=== PATIENT | female | born 2000 | race Caucasian/White ===

== ENCOUNTER → 2020-02-16 17:52 | Outpatient (BNVA) | payer MEDICAID, SELFPAY | PROVIDERS: Visit Provider Nurse Practitioner Family | DX: R68.89 Other general symptoms and signs (principal); Z20.828 Contact with and (suspected) exposure to other viral communicable diseases | CPT/HCPCS: 87400; 87635 ==

== ENCOUNTER 2021-06-21 22:16 | Emergency (ER) | payer OTHER, BC, MEDICAID, SELFPAY ==
[2021-06-21 22:25] VITALS: BP 109/59; PULSE 87; RESP 16; TEMP 36.8; O2SAT 98; BMI 20.7
--- NOTE | 2021-06-21 22:38 | ED_ITS ---
HPI - Abdominal Pain General: Chief Complaint: Abdominal Pain Stated Complaint: Lower ABD Pain Time Seen by Provider: 06/21/21 22:37 History of Present Illness: HPI narrative: 20-year-old female comes in today with complaints of lower abdominal pain radiating to the left side. Patient reports symptoms have worsened over the last 4 days. Patient also has reported some diarrhea today and a fever. Patient reports poor appetite but no nausea or vomiting. Patient has a Depo-Medrol for control. Patient is a monogamous relationship and denies any vaginal discharge or abnormal bleeding. Patient reports no abdominal surgeries. MD elicited complaint: abdominal pain Pertinent past history: none Onset (ago): day(s) Pain Consistency: intermittent Location: Periumbilical Severity: moderate Quality: cramping Radiation: LLQ Exacerbating factors: bowel movement, movement and other (Urination) Relieving factors: rest Associated Symptoms: Reports anorexia, change in bowel habits, diarrhea and fever(s) Review of Systems Const: Reports: fever(s), body aches and fatigue GI: Reports: diarrhea and change in bowel habits : Reports: vaginal bleeding (Spotting) PFSH ED PFSH: Social History Smoking and tobacco status: never smoked Alcohol intake: never Physical Exam Const: COMMON NORMALS: patient oriented x3 GENERAL APPEARANCE: cooperative HENMT: COMMON NORMALS: normocephalic, TM's normal bilaterally and Normal external nose present HEAD & SCALP: normal to inspection and normocephalic NOSE: Normal external nose present TYMPANIC MEMBRANE: TM's normal bilaterally MOUTH: Normal oral and palatal mucosa present THROAT: posterior oropharynx normal Eye: GENERAL EYE: appearance normal, both eyes and all related structures Neck/C-Spine: COMMON NORMALS: full ROM Lymph: LYMPHATIC: no lymphadenopathy noted Chest: COMMONS NORMALS: normal inspection of the chest Resp: COMMON NORMALS: normal respiratory effort and clear to auscultation bilaterally EFFORT & INSPECTION: Yes able to speak in complete sentences AUSCULTATION: clear to auscultation bilaterally Cardio: COMMON NORMALS: regular rate and regular rhythm RATE: regular rate RHYTHM: regular rhythm GI: COMMON NORMALS: Soft to palpation INSPECTION: Yes normal to inspection AUSCULTATION: Yes normoactive bowel sounds PALPATION: Yes Soft to palpation and Yes Tenderness to palpation present (GI) Details: LLQ : COMMON NORMALS: Yes no CVA tenderness BLADDER/KIDNEY EXAM: Yes no CVA tenderness Back/Pelvis: COMMON NORMALS: no CVA tenderness and thoracic and lumbar spine normal to inspection Extremity: COMMON NORMALS: normal to inspection Neuro: COMMON NORMALS: patient oriented x3 and moves all extremities Psych: COMMON NORMALS: mental status grossly normal and cooperative Skin: COMMON NORMALS: no rashes or lesions noted GENERAL SKIN EXAM: no rashes or lesions noted Course Vital Signs: Vital signs: Vital Signs Temperature 98.2 F 06/21/21 22:25 Pulse Rate 87 06/21/21 22:25 Respiratory Rate 14 06/21/21 23:01 Blood Pressure 109/59 06/21/21 22:25 Pulse Oximetry 98 06/21/21 22:25 MDM - Abdominal Pain MDM Narrative: Medical decision making narrative: 20-year-old female comes in today with some left lower quadrant abdominal pain. On exam patient's abdomen is soft with normal active bowel sounds. Patient did have some tenderness in the left lower quadrant strong. Vital signs were normal. Differential di agnosis includes but not limited to colitis, urinary tract infection, ovarian cyst. CBC was unremarkable. CMP was unremarkable. hCG was negative. Urinalysis showed no significant abnormalities. Patient was given 1 L of IV fluids and 2 mg of morphine and 4 mg of Zofran for her discomfort. Patient had resolution of pain. CT scan of the abdomen pelvis noted distal colitis without any other signs of other illness except may be some pelvic congestion syndrome. Patient reported that he has no recurrent episodes of this type of pain I suspect mildly an infectious colitis. We will give the patient Cipro 500 twice daily for the next 7 days, and Flagyl 250 mg twice a day for next 7 days. I reviewed this with patient and significant other who reported understanding. Patient will follow-up with primary care in 3 days for recheck. Return to the ER for worsening symptoms. Lab Data: Labs: Lab Results 06/21/21 06/21/21 06/21/21 22:41 22:51 22:51 WBC 5.0 10^3/uL 10^3/ uL (4.5-13.0) RBC 4.53 10^6/uL 10^6 /uL (4.1-5.3) Hgb 14.1 g/dL g/dL (11.5-15.3) Hct 42.2 % % (37.0-47.0) MCV 93.2 fl fl (81-99) MCH 31.1 pg pg (28.0-34.0) MCHC 33.4 g/dL g/dL (30.0-36.0) RDW 11.5 % L % (12.1-15.1) Plt Count 197 10^3/cmm 10^3 /cmm (130-400) MPV 10.2 fL fL (7.4-10.4) Neut % (Auto) 58.3 % % Lymph % (Auto) 28.2 % % [place] % (Auto) 10.7 % % Eos % (Auto) 2.0 % % Baso % (Auto) 0.6 % % Neut # (Auto) 2.94 10^3/uL 10^3 /uL (1.8-8.0) Lymph # (Auto) 1.4 10^3/uL L 10^ 3/uL (1.5-6.5) [place] # (Auto) 0.5 10^3/uL 10^3/ uL (0.2-0.9) Eos # (Auto) 0.1 10^3/uL 10^3/ uL (0.0-0.8) Baso # (Auto) 0.0 10^3/uL 10^3/ uL (0.0-0.1) Nucleated RBC % (a uto) 0 % % Nucleated RBCs # 0.0 /100WBC /100W BC Sodium 140 mmol/L mmol/L (136-145) Potassium 3.4 mmol/L L mmol /L (3.5-5.1) Chloride 105 mmol/L mmol/L (98-107) Carbon Dioxide 24 mmol/L mmol/L (22-29) Anion Gap 14.4 (5-19) BUN 9 mg/dL mg/dL (6-20) Creatinine 0.5 mg/dL mg/dL (0.5-0.9) GFR Calculation 157.3 mL/min H mL /min (90-130) Glucose 90 mg/dL mg/dL (65-115) Calculated Osmolal ity 288 mOsm/kg mOsm/ kg (285-295) Calcium 8.8 mg/dL mg/dL (8.5-10.5) Total Bilirubin 0.2 mg/dL mg/dL (0.15-1.2) AST 15 U/L U/L (0-32) ALT 13 U/L U/L (0-33) Alkaline Phosphata se 66 IU/L IU/L (35-105) Total Protein 7.4 g/dL g/dL (6.6-8.7) Albumin 4.3 g/dL g/dL (3.5-5.2) Globulin 3.1 g/dL g/dL (1.3-4.6) Lipase 58 U/L U/L (13-60) HCG, Qual Urine Color Yellow (Yellow) Urine Appearance Clear (CLEAR) Urine pH 7 (5-7) Ur Specific Gravit y 1.005 (1.005-1.030) Urine Protein Neg (Negative) Urine Glucose (UA) Norm (Normal) Urine Ketones Negative (Negative) Urine Blood Neg (Negative) Urine Nitrate Negative (Negative) Urine Bilirubin Neg (Negative) Urine Urobilinogen Norm mg/dL mg/dL (Negative) Ur Leukocyte Renee ase 1+ H (Negative) Urine RBC 0-4 /hpf H /hpf (0-2) Urine WBC 5-10 /hpf H /hpf (0-5) Ur Squamous Epith Cells 0-4 /hpf H /hpf (0-5) Amorphous Sediment Not Reportable Urine Bacteria Trace /hpf /hpf (NONE) SARS-CoV-2 Ag (Rap id) 06/21/21 06/21/21 22:51 23:08 WBC RBC Hgb Hct MCV MCH MCHC RDW Plt Count MPV Neut % (Auto) Lymph % (Auto) [place] % (Auto) Eos % (Auto) Baso % (Auto) Neut # (Auto) Lymph # (Auto) [place] # (Auto) Eos # (Auto) Baso # (Auto) Nucleated RBC % (a uto) Nucleated RBCs # Sodium Potassium Chloride Carbon Dioxide Anion Gap BUN Creatinine GFR Calculation Glucose Calculated Osmolal ity Calcium Total Bilirubin AST ALT Alkaline Phosphata se Total Protein Albumin Globulin Lipase HCG, Qual Negative (Negative) Urine Color Urine Appearance Urine pH Ur Specific Gravit y Urine Protein Urine Glucose (UA) Urine Ketones Urine Blood Urine Nitrate Urine Bilirubin Urine Urobilinogen Ur Leukocyte Renee ase Urine RBC Urine WBC Ur Squamous Epith Cells Amorphous Sediment Urine Bacteria SARS-CoV-2 Ag (Rap id) Negative (Negative) Discharge Plan Discharge Patient Disposition: Home Clinical Impression: Colitis without complication Condition: Stable Prescriptions: New ciprofloxacin HCl 500 mg tablet 500 mg PO BID Qty: 14 RF: 0 metronidazole 500 mg tablet 250 mg PO BID 7 Days Qty: 7 RF: 0 hydrocodone-acetaminophen 5-325 mg tablet 1 tab PO Q8H PRN (Reason: pain (scale score 7-10)) Qty: 7 RF: 0 ondansetron 4 mg tablet,disintegrating 4 mg PO Q8H PRN (Reason: nausea and vomiting) Qty: 7 RF: 0 No Action medroxyprogesterone [Depo-Provera] 150 mg/mL suspension IM RF: 0 Discharge Orders: Discharge ED (Routine); Ordered 06/22/21 Ordered By: Melecio Myrick Discharge Diet: Usual diet Discharge Activity: Increase activity as tolerated Patient Instructions: Colitis (ED), Opioid Safety Activity Restrictions/Additional Instructions: Home and rest. Drink plenty of fluids. Take antibiotics as directed. Use hydrocodone and ondansetron as needed for pain and nausea. Eat a bland diet avoiding spicy, greasy, and acidic foods. Follow-up with primary care in 3 days for recheck. Return to emergency department for new concerns. Coding Level of Care Code ED Receiver/Laborer for Gennaro Fwraphael Exam Comprehensive
[2021-06-21 23:01] VITALS: RESP 14
[2021-06-21] MEDS: morphine 4 mg/mL SDV 1 mL 2 MG IVP (23:01)
[2021-06-21] MEDS: ondansetron 2 mg/ML SDV 2 mL 4 MG IVP (23:01)
[2021-06-21] MEDS: sodium chloride 0.9% 1,000 ML 999 ML IV (23:02)
[2021-06-21 23:06] LABS: Basophils % 0.6 %; Eosinophils # 0.1 10^3/uL (0.0-0.8); Hematocrit 42.2 % (37.0-47.0); Hemoglobin 14.1 g/dL (11.5-15.3); Lymphocytes # 1.4 10^3/uL (1.5-6.5); Lymphocytes % 28.2 %; Mean Corpuscular HGB Conc 33.4 g/dL (30.0-36.0); Mean Corpuscular Hemoglobin 31.1 pg (28.0-34.0); Mean Corpuscular Volume 93.2 fl (81-99); Mean Platelet Volume 10.2 fL (7.4-10.4); Monocytes # 0.5 10^3/uL (0.2-0.9); Monocytes % 10.7 %; Neutrophils # 2.94 10^3/uL (1.8-8.0); Neutrophils % 58.3 %; Nucleated Red Blood Cells % 0 %; Platelet Count 197 10^3/cmm (130-400); Red Blood Count 4.53 10^6/uL (4.1-5.3); Red Cell Distribution Width 11.5 % (12.1-15.1)
[2021-06-21 23:06] LABS: Add Urine Microscopic? YES; Bacteria Urine TRACE /hpf; Bilirubin Urine Neg (Negative); Blood Urine Neg (Negative); Glucose Urine UA Norm (Normal); Ketones Urine Negative (Negative); Leukocyte Esterase Urine 1+ (Negative); Nitrate Urine Negative (Negative); Protein Urine Neg (Negative); RBC Urine 0-4 /hpf (0-2); Specific Gravity, Urine 1.005 (1.005-1.030); Squamous Epithelial Cell Urine 0-4 /hpf (0-5); Urine Appearance Clear (CLEAR); Urine Color Yellow (Yellow); Urobilinogen Urine Norm (Negative); pH Urine 7 (5-7)
--- NOTE | 2021-06-21 23:06 | CTR_ITS ---
PROCEDURE INFORMATION: Exam: CT Abdomen And Pelvis With Contrast Exam date and time: 06/21/2021 11:06 PM Age: 20 years old Clinical indication: Abdominal pain; Localized; Left lower quadrant (llq); Patient HX: C/O llq/periumbilical pain. ; Additional info: R/O abd infection, abscess, periumbilical pain, llq pain TECHNIQUE: Imaging protocol: Computed tomography of the abdomen and pelvis with contrast. Radiation optimization: All CT scans at this facility use at least one of these dose optimization techniques: automated exposure control; mA and/or kV adjustment per patient size (includes targeted exams where dose is matched to clinical indication); or iterative reconstruction. Contrast material: OMNI 300; Contrast volume: 75 ml; Contrast route: INTRAVENOUS (IV); COMPARISON: No relevant prior studies available. RADIATION DOSE METRICS: Total DLP (mGy-cm): 721.29 FINDINGS: Lungs: The lung bases appear unremarkable. Liver: The liver is unremarkable in appearance. Gallbladder and bile ducts: No calcified gallstones in the gallbladder. No gallbladder wall thickening. No pericholecystic fluid. No biliary dilatation. Pancreas: The pancreas is normal in appearance. No pancreatic duct dilatation. Spleen: The spleen is normal in size and appearance. Adrenal glands: The adrenal glands appear within normal limits. Kidneys and ureters: The kidneys are normal in morphology. No hydronephrosis. No solid mass. Stomach and bowel: There is mural thickening of the rectosigmoid portion of the colon with mild pericolonic inflammation associated. The ascending, and transverse portions of the colon contain air-fluid levels. No acute gastric abnormality demonstrated. The small bowel is unremarkable as demonstrated. Appendix: No evidence of appendicitis. Intraperitoneal space: No pneumoperitoneum. No significant fluid collection. Vasculature: No aortic aneurysm. Lymph nodes: No pathologically enlarged lymph nodes. Urinary bladder: Unremarkable as visualized. Reproductive: Prominence of the parametrial veins and dilatation of the bilateral ovarian veins, which can be seen in associated with pelvic congestion syndrome. Bones/joints: Unremarkable. No acute osseous abnormality. Soft tissues: Unremarkable. CT/CT abdomen pelvis w con* [id number] IMPRESSION: 1. There is mural thickening of the rectosigmoid portion of the colon with mild pericolonic inflammation associated. This is consistent with nonspecific distal colitis. 2. Prominence of the parametrial veins and dilatation of the bilateral ovarian veins, which can be seen in associated with pelvic congestion syndrome.
[2021-06-21 23:14] LABS: HCG, Serum Qual Negative (Negative)
[2021-06-21 23:18] LABS: Alanine Aminotransferase 13 U/L (0-33); Albumin Level 4.3 g/dL (3.5-5.2); Alkaline Phosphatase 66 IU/L (35-105); Anion Gap 14.4 (5-19); Aspartate Amino Transferase 15 U/L (0-32); Blood Urea Nitrogen 9 mg/dL (6-20); Calcium 8.8 mg/dL (8.5-10.5); Carbon Dioxide 24 mmol/L (22-29); Chloride 105 mmol/L (98-107); Globulin 3.1 g/dL (1.3-4.6); Glomerular Filtration Rate 157.3 mL/min (90-130); Glucose 90 mg/dL (65-115); Lipase 58 U/L (13-60); Osmolality Calculated 288 mOsm/kg (285-295); Potassium 3.4 mmol/L (3.5-5.1); Sodium 140 mmol/L (136-145); Total Bilirubin 0.2 mg/dL (0.15-1.2); Total Protein 7.4 g/dL (6.6-8.7)
[2021-06-21] MEDS: iohexol 300 mg/mL 100 mL Btl IV (23:20)
[2021-06-21 23:48] LABS: SARS Covid-2 Antigen Negative (Negative)
[2021-06-22] MEDS: ciprofloxacin 500 mg Tablet PO (00:12)
[2021-06-22] MEDS: metroNIDAZOLE 500 MG Tablet 250 MG PO (00:12)
== END 2021-06-22 00:18 | disposition home or self-care (01) ==
PROVIDERS: Emergency Provider Nurse Practitioner Family
DX: K52.9 Noninfective gastroenteritis and colitis, unspecified (principal); Z20.822 Contact with and (suspected) exposure to COVID-19
CPT/HCPCS: 74177; 80053; 81001; 83690; 84703; 85025; 87426; 96361; 96374; 96375; 99283; J2270; J2405; J7030; Q9967

== ENCOUNTER → 2021-09-08 15:25 | Outpatient (BNVA) | payer BC, MEDICAID, SELFPAY | PROVIDERS: Visit Provider Emergency Medicine | DX: Z32.02 Encounter for pregnancy test, result negative (principal) | CPT/HCPCS: 81025 ==

== ENCOUNTER → 2022-08-31 13:29 | Outpatient (BNVA) | payer BC, MEDICAID, SELFPAY | PROVIDERS: Visit Provider Emergency Medicine | DX: N39.0 Urinary tract infection, site not specified (principal); Z32.00 Encounter for pregnancy test, result unknown; R39.9 Unspecified symptoms and signs involving the genitourinary system; B96.89 Other specified bacterial agents as the cause of diseases classified elsewhere; N76.0 Acute vaginitis; R31.29 Other microscopic hematuria | CPT/HCPCS: 81000; 81025; 87086 ==

== ENCOUNTER → 2022-11-08 14:48 | Outpatient (BNVA) | payer OTHER, BC, MEDICAID, SELFPAY | PROVIDERS: Visit Provider Nurse Practitioner Family | DX: S52.501A Unspecified fracture of the lower end of right radius, initial encounter for closed fracture (principal); X58.XXXA Exposure to other specified factors, initial encounter | CPT/HCPCS: 73110 ==

== ENCOUNTER → 2022-12-11 17:58 | Outpatient (BNVA) | payer OTHER, BC, MEDICAID, SELFPAY | PROVIDERS: Visit Provider Nurse Practitioner Family | DX: Z32.00 Encounter for pregnancy test, result unknown (principal) | CPT/HCPCS: 81025; 84702 ==

== ENCOUNTER → 2022-12-25 13:28 | Outpatient (BNVA) | payer OTHER, BC, MEDICAID, SELFPAY | PROVIDERS: Visit Provider Nurse Practitioner Family | DX: N39.0 Urinary tract infection, site not specified (principal) | CPT/HCPCS: 81000; 87077; 87086; 87184 ==

== ENCOUNTER → 2023-02-05 13:49 | Outpatient (BNVA) | payer OTHER, BC, MEDICAID, SELFPAY | PROVIDERS: Visit Provider Nurse Practitioner Women's Health | DX: Z34.92 Encounter for supervision of normal pregnancy, unspecified, second trimester (principal); Z3A.12 12 weeks gestation of pregnancy | CPT/HCPCS: 76801; 81000 ==

== ENCOUNTER → 2023-02-27 12:47 | Outpatient (BNVA) | payer OTHER, BC, MEDICAID, SELFPAY | PROVIDERS: Visit Provider Nurse Practitioner Family | DX: R39.9 Unspecified symptoms and signs involving the genitourinary system (principal); R31.9 Hematuria, unspecified | CPT/HCPCS: 81000; 87077; 87086; 87184 ==

== ENCOUNTER → 2023-03-05 09:33 | Outpatient (BNVA) | payer OTHER, BC, MEDICAID, SELFPAY | PROVIDERS: Visit Provider Obstetrics & Gynecology | DX: Z34.90 Encounter for supervision of normal pregnancy, unspecified, unspecified trimester (principal) | CPT/HCPCS: 84315; 87491; 87591 ==

== ENCOUNTER → 2023-04-02 12:15 | Outpatient (BNVA) | payer OTHER, BC, MEDICAID, SELFPAY | PROVIDERS: Visit Provider Obstetrics & Gynecology | DX: Z34.92 Encounter for supervision of normal pregnancy, unspecified, second trimester (principal); Z3A.20 20 weeks gestation of pregnancy | CPT/HCPCS: 76805 ==

== ENCOUNTER → 2023-05-01 14:25 | Outpatient (BNVA) | payer OTHER, BC, MEDICAID, SELFPAY | PROVIDERS: Visit Provider Obstetrics & Gynecology | DX: Z34.92 Encounter for supervision of normal pregnancy, unspecified, second trimester (principal); Z3A.24 24 weeks gestation of pregnancy | CPT/HCPCS: 76816 ==

== ENCOUNTER → 2023-05-28 14:09 | Outpatient (BNVA) | payer OTHER, BC, MEDICAID, SELFPAY | PROVIDERS: Visit Provider Obstetrics & Gynecology | DX: Z34.90 Encounter for supervision of normal pregnancy, unspecified, unspecified trimester (principal); Z3A.00 Weeks of gestation of pregnancy not specified | CPT/HCPCS: 80307; 81000; 82950; 85025; 86592; 86762; 86803; 86850; 86900; 87086; 87340; 87806 ==

== ENCOUNTER → 2023-06-12 16:14 | Outpatient (BNVA) | payer OTHER, BC, MEDICAID, SELFPAY | PROVIDERS: Visit Provider Obstetrics & Gynecology | DX: Z34.90 Encounter for supervision of normal pregnancy, unspecified, unspecified trimester (principal); Z3A.00 Weeks of gestation of pregnancy not specified | CPT/HCPCS: 81000 ==

== ENCOUNTER → 2023-07-03 12:27 | Outpatient (BNVA) | payer OTHER, BC, MEDICAID, SELFPAY | PROVIDERS: Visit Provider Obstetrics & Gynecology | DX: Z34.93 Encounter for supervision of normal pregnancy, unspecified, third trimester (principal); Z3A.34 34 weeks gestation of pregnancy | CPT/HCPCS: 76816 ==

== ENCOUNTER → 2023-07-06 15:47 | Outpatient (BNVA) | payer OTHER, BC, MEDICAID, SELFPAY | PROVIDERS: Visit Provider Emergency Medicine | DX: T70.20XA Unspecified effects of high altitude, initial encounter (principal); Y99.9 Unspecified external cause status; J02.9 Acute pharyngitis, unspecified; B34.9 Viral infection, unspecified | CPT/HCPCS: 87400; 87426; 87880 ==

== ENCOUNTER → 2023-07-23 08:30 | Outpatient (BNVA) | payer OTHER, BC, MEDICAID, SELFPAY | PROVIDERS: Visit Provider Obstetrics & Gynecology | DX: Z34.90 Encounter for supervision of normal pregnancy, unspecified, unspecified trimester (principal); Z3A.34 34 weeks gestation of pregnancy | CPT/HCPCS: 81000; 87081 ==

== ENCOUNTER 2023-08-16 01:24 | Outpatient (CLI) | payer OTHER, BC, MEDICAID, SELFPAY ==
[2023-08-16] VITALS (9 sets, daily range): BP systolic 91–121; BP diastolic 55–77; PULSE 86–107; TEMP 35.9; BMI 26.5
== END 2023-08-16 09:25 | disposition home or self-care (01) ==
LOC: OPOB 01:25 → OBGYN 01:26
PROVIDERS: Visit Provider Obstetrics & Gynecology
DX: O26.899 Other specified pregnancy related conditions, unspecified trimester (principal); Z3A.00 Weeks of gestation of pregnancy not specified; R10.9 Unspecified abdominal pain
CPT/HCPCS: 59025; 99211

== ENCOUNTER 2023-08-20 11:53 | Inpatient (IN) | payer OTHER, BC, MEDICAID, SELFPAY ==
[2023-08-20] VITALS (38 sets, daily range): BP systolic 84–162; BP diastolic 48–77; PULSE 68–125; RESP 17; TEMP 36.9–37.2; O2SAT 98; BMI 26.6
[2023-08-20 11:17] LABS: Nitrazine Paper, PH Positive
[2023-08-20 12:01] LABS: Basophils % 0.1 %; Eosinophils % 0.5 %; Hematocrit 35.2 % (36-47); Lymphocytes # 1.2 10^3/uL (0.8-4.8); Lymphocytes % 14.9 %; Mean Corpuscular HGB Conc 33.8 g/dL (30-55); Mean Corpuscular Hemoglobin 30.9 pg (27-33); Mean Corpuscular Volume 91.4 fl (85-98); Mean Platelet Volume 11.8 fL (7.4-10.4); Monocytes # 0.5 10^3/uL (0.2-0.9); Monocytes % 6.2 %; Neutrophils # 6.12 10^3/uL (1.8-7.7); Neutrophils % 77.8 %; Nucleated Red Blood Cells % 0 %; Platelet Count 194 10^3/cmm (157-399); Red Blood Count 3.85 10^6/uL (3.85-5.65); Red Cell Distribution Width 13.2 % (12.1-15.1); White Blood Count 7.87 10^3/uL (3.29-11.43)
[2023-08-20] MEDS: ROPivacaine syringe 100 MG/50 ML SYRINGE 10 MG EPIDURAL ×2 (13:03→15:58)
[2023-08-20] MEDS: lactated ringers 1,000 ML 999 ML IV (13:09)
--- NOTE | 2023-08-20 13:25 | P.ANESASSM_ITS ---
Pre-Anesthetic Assessment Height/Weight: Height 1.55 m Weight 63.957 kg Pulse Resp BP Pulse Ox O2 Del Method 90 17 106/67 98 Room Air 08/20/23 13:21 08/20/23 11:11 08/20/23 13:21 08/20/23 13:00 08/20/23 11:30 Epidural Familial anesthetic complications: None Was Beta Jhonny taken within 24 hours: N/A Was Clonidine taken within 24 hours: N/A Last intake: > 8 hrs Social No alcohol and No tobacco Exam alert, oriented x 3, clear to auscultation bilaterally and regular rate & rhythm Airway Mallampati: Class II Dentition: full Anesthetic Plan ASA status: 2 Anesthesia: Regional (specify below) (epidural) Risk of > 500 ml blood loss (7ml/kg in children): No Medications/Allergies Allergies Allergy/AdvReac Type Severity Reaction Status Date / Time No Known Allergies Allergy Verified 08/16/23 05:51 Current Medications Generic Name Dose Route Start Last Admin Trade Name Freq PRN Reason Stop Dose Admin Lactated Ringer's 1,000 mls @ 999 mls/hr 08/20/23 11:57 08/20/23 13:09 Lactated Ringers IV 999 mls/hr .Q1H1M PRN Administration See label comments Ropivacaine 100 mg in 50 mls @ 10 mls/hr 08/20/23 12:00 08/20/23 13:03 Naropin Syringe EPIDURAL 10 mls/hr .Q5H SHARIF Administration PFSH Anesthesia Family History Grandmother Breast cancer paternal Denies family history of Colon cancer Ovarian cancer Prostate cancer Diabetes Heart disease Hyperlipidemia Hypertension Uterine cancer Thyroid disease Stroke Female Reproductive History Date of last menstrual period: 11/13/22 : 2 Spontaneous abortions: No Data Anesthesia 08/20/23 11:51 Short CBC 08/20/23 Range/Units 11:51 WBC 7.87 (3.29-11.43) 10^3/uL Hgb 11.90 (11.27-16.99) g/dL Hct 35.2 L (36-47) % MCV 91.4 (85-98) fl Plt Count 194 (157-399) 10^3/cmm Neut % (Auto) 77.8 % Neut # (Auto) 6.12 (1.8-7.7) 10^3/uL Blood Bank 08/20/23 11:51 Blood Type O Negative Rho(D) Type Rh negative Antibody Screen Negative Cardiac Studies: 2 No Data to Display
--- NOTE | 2023-08-20 13:27 | P.ANES_ITS ---
Anesthesia Procedures Procedure/Date: 08/20/23 Epidural: Time Out Performed: Yes Consents Signed: NPO Consent Consent: requested by attending/covering physician, from patient, from other, risks and benefits reviewed and patient agrees to proceed Lumbar Level: L3-L4 Epidural position: sitting Epidural procedure: sterile prep of area, 1% lidoc vijaya to numb the area, 18 g needle, negative for paresthesia passed, neg for paresthesia, test dose given, 1.5% xylocaine 1:200k epi (5 cc), 0.2% Ropivacaine bolus ml (5 cc), placed PCEA, no systemic response, sterile dressing applied, L.U.D. no apparent complications and 0.2% Ropiavacaine @ mls/hr (13)
--- NOTE | 2023-08-20 13:36 | P.HP_ITS ---
Providers/Chief Complaint 2 Admitting Physician: Jimena Angel DO Primary METAL BUGGY OPERATOR: Dr. Yosef Berrios Chief Complaint: Poss SROM/ Elective IOL HPI METAL BUGGY OPERATOR History of Present Illness Stefany Platt is a 22 year old female G2, P1 at 40 weeks gestation with DECLAN 08/20/2023. Patient was scheduled for induction of labor today by Dr. Berrios. Patient arrived to labor and delivery with complaints of leakage of fluid onset 9 AM today followed by gross rupture upon arrival. Patient is to good movement and no vaginal bleeding. She denies any problems through this or with her past and delivery. Present Details : 2 Para: 1 Date of Last Menstrual Period: 11/13/22 Calculated Date of Delivery: 08/20/23 Gestational Age Based on Last Menstrual Period: 40 Medical complications OB: none Labs Rubella: Immune RPR: Negative GBS: Negative Review of Systems 2 General: Reports: 10 or more systems reviewed and unremarkable except in HPI and below Medications/Allergies Allergies Allergy/AdvReac Type Severity Reaction Status Date / Time No Known Allergies Allergy Verified 08/16/23 05:51 PFSH METAL BUGGY OPERATOR 2 PFSH: Family History Grandmother Breast cancer paternal Denies family history of Colon cancer Ovarian cancer Prostate cancer Diabetes Heart disease Hyperlipidemia Hypertension Uterine cancer Thyroid disease Stroke Personal Safety: Do you feel safe at home: Yes Victim of physical abuse: No Victim of emotional abuse: No Victim of sexual abuse: No Would you like help information on resources?: No History History History 2 2 Term 1 0 Miscarriages/Ectopic 0 Living Children 1 Care DECLAN Calculator 2 Estimated Delivery Date Method Current WG Current Estimate 08/20/23 LMP (Certain) 40w 0d Other Estimates 08/20/23 Ultrasound #1 40w 0d Expected Delivery Route/Plan expected Vitals/I&O/Wt Last Vital Signs Pulse 88 08/20/23 13:32 Resp 17 08/20/23 11:11 BP 102/68 08/20/23 13:32 Pulse Ox 98 08/20/23 13:00 O2 Del Method Room Air 08/20/23 11:30 Weight last 48 hrs Weight 63.957 kg Physical Exam 2 Const: COMMON NORMALS: no acute distress, patient oriented x3, no limitations, healthy appearing and well nourished Resp: COMMON NORMALS: normal respiratory effort and clear to auscultation bilaterally Cardio: COMMON NORMALS: regular rate and regular rhythm Back/Pelvis: COMMON NORMALS: no CVA tenderness OTHER: Pelvic exam Cervix?4 to 5 cm / 90%/-3 vertex with clear fluid noted. Extremity: COMMON NORMALS: normal to inspection, no clubbing, cyanosis or edema and no calf tenderness Neuro: COMMON NORMALS: patient oriented x3, CN's II-XII intact bilaterally, moves all extremities and deep tendon reflexes 2+ bilaterally Data 08/20/23 11:51 Results Labs OB ([facility]): 2 Obstetrics US 07/03/23 Blood Type O Negative 08/20/23 Antibody Screen Negative 08/20/23 Hct 35.2 % (36-47) L 08/20/23 Hgb 11.90 g/dL (11.27-16.99) 08/20/23 Rho(D) Type Rh negative 08/20/23 Plt Count 194 10^3/cmm (157-399) 08/20/23 Hep Bs Antigen Non-reactive (Nonreactive) 05/28/23 Hepatitis C Antibody Non-reactive (Nonreactive) 05/28/23 Rubella IgG Antibody 215.6 IU/mL (0.0-10.0) H 05/28/23 RPR Nonreactive (Nonreactive) 05/28/23 HIV 1&2 Ab & HIV 1 Ag Non-reactive (Non-Reactiv) 05/28/23 C.trachomatis RNA (TMA) Not detected (NOT DETECTED) N.gonorrhoeae RNA (TMA) Not detected (NOT DETECTED) T. vaginalis Amp RNA Not detected (NOT DETECTED) 03/05/23 Chlamydia/GC Comment See note 03/05/23 Gest Glucose Tolerance 128 mg/dL (70-139) 05/28/23 Ser , Semi-Qnt 50.68 mIU/mL 12/11/22 HCG, Qual Positive (Negative) H 12/11/22 Urine Opiates Screen Negative ng/mL (Negative) 05/28/23 Ur Barbiturates Screen Negative ng/mL (Negative) 05/28/23 Ur Phencyclidine Scrn Negative ng/mL (Negative) 05/28/23 Ur Amphetamines Screen Negative ng/mL (Negative) 05/28/23 U Benzodiazepines Scrn Negative ng/mL (Negative) 05/28/23 Urine Cocaine Screen Negative ng/mL (Negative) 05/28/23 U Marijuana (THC) Screen Negative ng/mL (Negative) 05/28/23 Micro Urine Specimen 05/28/23 A&P Assessment and plan (1) 40 weeks gestation of : GBS negative (2) Spontaneous rupture of membranes: (3) Rh negative status during : Qualifiers: Trimester: third trimester Qualified Code(s): O26.893 - Other specified related conditions, third trimester; Z67.91 - Unspecified blood type, Rh negative Plan Admit to labor and delivery for management of labor. Attestations 2 Medical Necessity Statement*: Admit to labor and delivery for management of labor Coding Level of Care Code Acute Code for Chg Fwd Diagnoses 40 weeks gestation of Z3A.40 Spontaneous rupture of membranes Rh negative status during in third trimester O26.893; Z67.91 Trimester: third trimester
[2023-08-20] MEDS: oxytocin 30 UNIT/500 ML BAG IV (15:21)
--- NOTE | 2023-08-20 15:42 | PM.OBGYPN ---
[facility] [employer]CH[employer]OLOG[facility] LECTURER Subjective Subjective: Interval history: Patient doing well seen with nursing staff currently 7 cm 100% -2 vertex. Contractions are noted to have spaced out, discussed with patient starting Pitocin augmentation to increase contraction frequency as well as intensity. Possibility of nonreassuring monitoring reviewed if Pitocin use, which may result in section delivery. Patient understands and agrees to start Pitocin. Labor: Station: -3 Amniotic Membrane Status: Ruptured Monitor Mode: External Contraction Pattern: Irregular Vitals/I&O/Wt Last Vital Signs Pulse 100 08/20/23 15:37 Resp 17 08/20/23 11:11 BP 113/76 08/20/23 15:37 Pulse Ox 98 08/20/23 13:00 O2 Del Method Room Air 08/20/23 11:30 Weight last 48 hrs Weight 63.957 kg Physical Exam Urinary Catheter Management: Claire: Cath Placed During This Visit: yes Urinary Catheter Date of Insertion: 08/20/23 Urinary Catheter Time of Insertion: 13:25 Data 08/20/23 11:51 A&P Assessment and plan (1) Spontaneous rupture of membranes: (2) 40 weeks gestation of : (3) Rh negative status during : Qualifiers: Trimester: third trimester Qualified Code(s): O26.893 - Other specified related conditions, third trimester; Z67.91 - Unspecified blood type, Rh negative Plan Began Pitocin augmentation. Attestations Medical Necessity Statement*: Management of labor Coding Level of Care Code Acute Code for Chg Fwd Diagnoses Spontaneous rupture of membranes 40 weeks gestation of Z3A.40 Rh negative status during in third trimester O26.893; Z67.91 Trimester: third trimester
--- NOTE | 2023-08-20 17:23 | P.PCNOB_ITS ---
Delivery Note: Date of delivery: August 20, 2023 Pre-delivery diagnoses: 40-week gestation Spontaneous rupture membranes Rh- status Post-delivery diagnoses: Same Procedure: viable male Op report anesthesia: Epidural Delivering Physician: Jimena Angel DO Estimated blood loss (mL): 200 Findings: Viable male Post Delivery Diagnoses: Rh negative status during : Qualifiers: Trimester: third trimester Qualified Code(s): O26.893 - Other specified related conditions, third trimester; Z67.91 - Unspecified blood type, Rh negative Delivery: 22-year-old female G2, P2 delivered a vi able male with low outlet forceps due to decreased heart tones. Failure to deliver with vacuum assist secondary to its popping off. The anterior followed by the posterior shoulders were delivered with the remainder of the baby's body to follow. Delay in clamping the cord was done the cord was then clamped and cut and baby placed on maternal abdomen for bonding, and nursing evaluation. Three-vessel cord was noted, the uterus was massaged and the placenta presented in a New presentation with trailing membranes. Pitocin IV solution was given in a bolus manner. The uterus remained firm with small amount of bleeding noted. The vaginal vault was explored as well as the cervical edges with no lacerations noted. Mother and infant are both in stable and satisfactory condition. The baby was evaluated at the warmer, slight bruising 9/9 weight 7 pounds 8 ounces anesthesia?epidural complications?none Physician Jimena Angel DO History History History 2 Term 2 0 Miscarriages/Ectopic 0 Living Children 2 A&P Assessment and plan (1) Spontaneous rupture of membranes: (2) 40 weeks gestation of : (3) Rh negative status during : Qualifiers: Trimester: third trimester Qualified Code(s): O26.893 - Other specified related conditions, third trimester; Z67.91 - Unspecified blood type, Rh negative (4) (spontaneous vaginal delivery): Plan S/p viable male, will begin care. Evaluate for Rh- status Coding Level of Care Code Acute Code for Chg Fwd Diagnoses Spontaneous rupture of membranes 40 weeks gestation of Z3A.40 Rh negative status during in third trimester O26.893; Z67.91 Trimester: third trimester (spontaneous vaginal delivery) O80
[2023-08-20] MEDS: dextrose 5%-lactated ringers 1,000 ML 125 ML IV (17:47)
[2023-08-20] MEDS: acetaminophen 325 mg Tablet 650 MG PO (23:49)
[2023-08-21 03:25] VITALS: BP 111/62; PULSE 88; TEMP 36.2
[2023-08-21 06:22] LABS: Hematocrit 32.9 % (36-47); Mean Corpuscular HGB Conc 32.8 g/dL (30-55); Mean Corpuscular Hemoglobin 30.7 pg (27-33); Mean Corpuscular Volume 93.5 fl (85-98); Mean Platelet Volume 11.8 fL (7.4-10.4); Platelet Count 181 10^3/cmm (157-399); Red Blood Count 3.52 10^6/uL (3.85-5.65); Red Cell Distribution Width 13.2 % (12.1-15.1); White Blood Count 8.19 10^3/uL (3.29-11.43)
[2023-08-21] MEDS: benzocaine-menthol 78 gm Canister 1 SPRAY TOPICAL (07:56)
[2023-08-21] MEDS: HYDROcodone-acetaminophen 5-325 mg Tablet PO ×3 (07:56→21:11)
[2023-08-21] MEDS: ibuprofen 800 mg tablet PO ×3 (09:19→21:07)
[2023-08-21] MEDS: prenatal vitamin Capsule 1 CAP PO (09:19)
[2023-08-21] MEDS: docusate sodium 100 mg Capsule PO (09:19)
[2023-08-21 09:21] VITALS: BP 124/65; PULSE 100; TEMP 36.6
--- NOTE | 2023-08-21 09:57 | P.ANESPOST_ITS ---
Inpatient post-anesthesia follow up: Airway intact: Yes Vital signs: Temperature 97.8 F Pulse Rate 100 Respiratory Rate 17 Blood Pressure 124/65 Pulse Oximetry 98 Oxygen Delivery Me thod Room Air Oxygen Flow Rate Fraction of Inspir ed Oxygen Hydration adequate: Yes Nausea and vomiting: No Pain level: 1 Mental status: Baseline Additional Comments: Overnight patient developed softball sized swelling down by her lower sacrum with bruising. Asked to evaluate patient for possibility of epidural etiology. Insertion site of epidural shows no swelling, erythema, bruising and is very mildly tender to palpation at the exact point of entry. The area of swelling is more than 6 inches below insertion site. The swelling has improved since last night and the bruising has lessened per patient and nursing staff. The site demonstrates subcutaneous swelling with mild puple discoloration. Very unlikely related to epidural. Any extravasation of epidural solution into the subcutaneous tissues wouldn't to this location without tissues above it being involved. Epidural provided adequate relief so was also unlikely to be subcutaneously placed or pulled to a subcutaneous location. This cold be poss ible pressure injury or fracture of coccyx/sacrum Epidural Start/End: Epidural Start Date: 08/20/23 Epidural Start Time: 12:43 Epidural End Date: 08/20/23 Epidural End Time: 17:15
--- NOTE | 2023-08-21 10:11 | XRR_ITS ---
PROCEDURE INFORMATION: Exam: XR Pelvis Exam date and time: 08/21/2023 10:55 AM Age: 22 years old Clinical indication: Other: Pain; Additional info: Lower back pain/bruising TECHNIQUE: Imaging protocol: Radiologic exam of the pelvis. Views: 1 or 2 view. COMPARISON: CT abdomen pelvis w con* [id number] 06/21/2021 11:23 PM FINDINGS: Bones/joints: There is no evidence of acute fracture. There is diastasis of the pubic symphysis measuring up to 1.3 cm. Soft tissues: See Bones/joints finding. XR/XR pelvis 1-2V* [id number] IMPRESSION: Diastasis of the pubic symphysis. Otherwise no evidence of acute bony pathology.
[2023-08-21 14:50] VITALS: BP 108/67; PULSE 95
[2023-08-21 21:09] VITALS: BP 114/69; PULSE 88
[2023-08-22] MEDS: HYDROcodone-acetaminophen 5-325 mg Tablet PO (03:05)
[2023-08-22 03:57] VITALS: BP 92/54; PULSE 78
[2023-08-22 04:00] VITALS: RESP 18; TEMP 36.6
--- NOTE | 2023-08-22 07:48 | P.DS_ITS ---
Discharge Providers RECORDS MANAGEMENT COORDINATOR Date of Admission: 08/20/23 11:53 Date of Discharge: 08/22/23 Attending Provider at Admission: Jimena Angel DO Attending Provider at Discharge: Yosef Berrios MD Diagnoses at Discharge Discharge Diagnosis (1) Spontaneous rupture of membranes: Status: Acute (2) 40 weeks gestation of : Status: Acute (3) Rh negative status during : Status: Acute Qualifiers: Trimester: third trimester Qualified Code(s): O26.893 - Other specified related conditions, third trimester; Z67.91 - Unspecified blood type, Rh negative (4) (spontaneous vaginal delivery): Status: Acute Reason for Visit Reason for Visit: Poss SROM/ Elective IOL Hospital Course Hospital Course Stefany Platt is a 22 year old female G2, P2 at 40 weeks gestation with DECLAN 08/20/2023. Admitted to labor and delivery and had a spontaneous vaginal delivery without complication under epidural anesthesia. Doing and observation edema of the lower back over the sacral area was noted she was kept under observation. Observation was uneventful. Tolerating diet well. Ambulating without difficulty. She was counseled regarding pelvic rest for 6 weeks (no sex, no tampons, no vaginal douches). Return to the emergency room if any fever, increased bleeding or pain. Information Peripartum Data: Delivery Method: Operative Vaginal Physical Exam Narrative: GA; alert and oriented x 3 HEENT: normal Breasts: engorged Nipples - skin intact Lungs; clear to auscultation Heart: regular rhythm, no murmurs. Abd: Appropriately tender. BS+. Uterine fundus below umbilicus. No Fundal Tenderness. Perineum: normal lochia. Extremities: no edema, no cyanosis, no tenderness. Urinary Catheter Management: Claire: Cath Placed During This Visit: yes, but has since been removed by the nurse Reason for Continuing Indwelling Catheter: Decision to DC Catheter Urinary Catheter Date of Insertion: 08/20/23 Urinary Catheter Time of Insertion: 13:25 Date Urinary Catheter Removed: 08/20/23 Time Urinary Catheter Discontinued: 16:34 History History History 2 Term 2 0 Miscarriages/Ectopic 0 Living Children 2 Discharge Data Studies Completed and Pending Completed Studies During Hospitalization Category Date Time Status XR pelvis 1-2V* [id number] Routine Exams 08/21/23 10:11 Completed Pending at discharge Category Date Time Status Complete Crossmatch Stat Lab 08/20/23 11:51 Results Rho D Immune Globulin Stat Lab 08/20/23 11:51 Results Type and Screen Stat Lab 08/20/23 11:51 Results Radiology Impressions Pelvis X-Ray 08/21/23 10:11 IMPRESSION: Diastasis of the pubic symphysis. Otherwise no evidence of acute bony pathology. Laboratory Results WBC 8.19 10^3/uL (3.29-11.43) 08/21/23 05:21 RBC 3.52 10^6/uL (3.85-5.65) L 08/21/23 05:21 Hgb 10.80 g/dL (11.27-16.99) L 08/21/23 05:21 Hct 32.9 % (36-47) L 08/21/23 05:21 MCV 93.5 fl (85-98) 08/21/23 05:21 MCH 30.7 pg (27-33) 08/21/23 05:21 MCHC 32.8 g/dL (30-55) 08/21/23 05:21 RDW 13.2 % (12.1-15.1) 08/21/23 05:21 Plt Count 181 10^3/cmm (157-399) 08/21/23 05:21 MPV 11.8 fL (7.4-10.4) H 08/21/23 05:21 Neut % (Auto) 77.8 % 08/20/23 11:51 Lymph % (Auto) 14.9 % 08/20/23 11:51 [place] % (Auto) 6.2 % 08/20/23 11:51 Eos % (Auto) 0.5 % 08/20/23 11:51 Baso % (Auto) 0.1 % 08/20/23 11:51 Neut # (Auto) 6.12 10^3/uL (1.8-7.7) 08/20/23 11:51 Lymph # (Auto) 1.2 10^3/uL (0.8-4.8) 08/20/23 11:51 [place] # (Auto) 0.5 10^3/uL (0.2-0.9) 08/20/23 11:51 Eos # (Auto) 0.0 10^3/uL (0.0-0.8) 08/20/23 11:51 Baso # (Auto) 0.0 10^3/uL (0.0-0.1) 08/20/23 11:51 Nucleated RBC % (auto) 0 % 08/20/23 11:51 Nucleated RBCs # 0.0 /100WBC 08/20/23 11:51 Fluid pH (paper) Positive H 08/20/23 11:13 Blood Type O Negative 08/20/23 11:51 Rho(D) Type Rh negative 08/20/23 11:51 Antibody Screen Negative 08/20/23 11:51 Screen Negative (Negative) 08/21/23 05:21 Vitals Last Vital Signs Temp 97.8 F 08/22/23 04:00 Pulse 78 08/22/23 03:57 Resp 18 08/22/23 04:00 BP 92/54 08/22/23 03:57 Pulse Ox 98 08/20/23 13:00 O2 Del Method Room Air 08/20/23 11:30 Results Labs OB ([facility]): Obstetrics US 07/03/23 Blood Type O Negative 08/20/23 Antibody Screen Negative 08/20/23 Hct 32.9 % (36-47) L 08/21/23 Hgb 10.80 g/dL (11.27-16.99) L 08/21/23 Rho(D) Type Rh negative 08/20/23 Plt Count 181 10^3/cmm (157-399) 08/21/23 Hep Bs Antigen Non-reactive (Nonreactive) 05/28/23 Hepatitis C Antibody Non-reactive (Nonreactive) 05/28/23 Rubella IgG Antibody 215.6 IU/mL (0.0-10.0) H 05/28/23 RPR Nonreactive (Nonreactive) 05/28/23 HIV 1&2 Ab & HIV 1 Ag Non-reactive (Non-Reactiv) 05/28/23 C.trachomatis RNA (TMA) Not detected (NOT DETECTED) N.gonorrhoeae RNA (TMA) Not detected (NOT DETECTED) T. vaginalis Amp RNA Not detected (NOT DETECTED) 03/05/23 Chlamydia/GC Comment See note 03/05/23 Gest Glucose Tolerance 128 mg/dL (70-139) 05/28/23 Ser , Semi-Qnt 50.68 mIU/mL 12/11/22 HCG, Qual Positive (Negative) H 12/11/22 Urine Opiates Screen Negative ng/mL (Negative) 05/28/23 Ur Barbiturates Screen Negative ng/mL (Negative) 05/28/23 Ur Phencyclidine Scrn Negative ng/mL (Negative) 05/28/23 Ur Amphetamines Screen Negative ng/mL (Negative) 05/28/23 U Benzodiazepines Scrn Negative ng/mL (Negative) 05/28/23 Urine Cocaine Screen Negative ng/mL (Negative) 05/28/23 U Marijuana (THC) Screen Negative ng/mL (Negative) 05/28/23 Micro Urine Specimen 05/28/23 Discharge Plan Discharge Patient Disposition: Home Condition: Stable Prescriptions: New acetaminophen 325 mg capsule 325 mg PO Q4H PRN (Reason: fever or pain) Qty: 60 0RF docusate sodium [Colace] 100 mg capsule 100 mg PO BID Qty: 60 0RF ferrous sulfate [Iron (ferrous sulfate)] 325 mg (65 mg iron) tablet 325 mg PO BID Qty: 60 0RF ibuprofen 800 mg tablet 800 mg PO TID PRN (Reason: pain) Qty: 60 0RF Discharge Orders: Discharge Order (Routine); Ordered 08/22/23 Ordered By: Rene Jefferson Referrals: Yosef Berrios MD [Physician] - Discharge Diet: Usual diet Discharge Activity: Limit activity as instructed Patient Instructions: Depression (DC), Opioid Safety (DC), Preeclamp johan and Eclampsia After Delivery (GEN), Hemorrhage (DC), OB Discharge Report, OB Food/Drug Interaction Guide, OB Care at Home, Opioid Safety, OB Vaginal Deliveries - [facility], Abnormal Bleeding Activity Restrictions/Additional Instructions: 1. Please call [facility] on next working day to make your post-operative appointment in 2 weeks. 2. Please stay home until you come back to the clinic on first post- hospatilization check up. 3. Please follow instructions on your medications CAREFULLY. 4. If you have abdominal incision, do not cover it unless dressing is necessary because of drainage. OK to shower, but avoid bath. Leave steri-strips until they fall off. If they are still on one week after surgery, you may remove them. 5. If you had vaginal surgery or vaginal repair, Dr. Jefferson may instruct you to take SITZ bath. 6. Yellow, blood tinged odorous vaginal discharge is usually normal after hysterectomy or vaginal surgeries. 7. No SEXUAL INTERCOURSE, tampons, or douches until you are completely released from the post-operative care. 8. Avoid constipation by eating right and maybe using some Metamucil or Milk of Magnesia. 9. All prescription refills are given during the working hours. Please do no wait till it runs out. Call the clinic at [phone] before your medication runs out. The clinic will get in touch with your doctor to prescribe medications if necessary. 10. Please remain within 40 mile radius from our hospital because emergencies do happen now and then during the post-operative period. 11. If you have stairs at home, take one step at a time slowly and minimize the number of trips. It helps to stay in one floor for the next few days. No lifting except what you can lift by one hand until you are released from the post-operative care. 12. Driving is discouraged until you are well healed. It may be 3-4 weeks before you feel strong enough to drive. You should be able to turn and look through the rear window without pain and you should be able to push the brake pedal very hard without pain before you drive. No fast rules, but SAFETY should be your primary concern. DO NOT drive if you are on sedating medications such as narcotics. 13. Call the clinic (during working hours) to make urgent appointment or go to the Emergency room, if any of the following occurs: i. Vaginal bleeding becomes heavy, more than a period. ii. Incision becomes red and sore, or drains pus. iii. Your TEMPERATURE is over 100.4F or you have chill. iv. IV site becomes red and swollen (a little ``knot?? is usually OK) v. Persistent nausea and vomiting vi. Persistent constipation or diarrhea vii. Rash or allergic reaction to medications. Discharge Attestations RECORDS MANAGEMENT COORDINATOR Time Spent in Discharge Care*: greater than 30 min Coding Level of Care Code Acute Code for Chg Fwd Diagnoses Spontaneous rupture of membranes 40 weeks gestation of Z3A.40 Rh negative status during in third trimester O26.893; Z67.91 Trimester: third trimester (spontaneous vaginal delivery) O80
[2023-08-22 09:12] VITALS: BP 99/63; PULSE 85
[2023-08-22] MEDS: ibuprofen 800 mg tablet PO (09:12)
[2023-08-22] MEDS: docusate sodium 100 mg Capsule PO (09:12)
[2023-08-22] MEDS: prenatal vitamin Capsule 1 CAP PO (09:12)
[2023-08-22 11:11] VITALS: BP 117/66; PULSE 85; RESP 17
[2023-08-22 11:12] VITALS: BP 117/66; PULSE 85
[2023-08-22 11:30] VITALS: BP 117/66; PULSE 85
== END 2023-08-22 11:30 | disposition home or self-care (01) | DRG 806 ==
LOC: OPOB 11:53 → OBGYN 11:53
PROVIDERS: Obstetrics & Gynecology; Admitting Provider Obstetrics & Gynecology; Visit Provider Obstetrics & Gynecology
DX: O48.0 Post-term pregnancy (principal); O36.0930 Maternal care for other rhesus isoimmunization, third trimester, not applicable or unspecified; Z37.0 Single live birth; Z3A.40 40 weeks gestation of pregnancy; O71.89 Other specified obstetric trauma
CPT/HCPCS: 36415; 36430; 51702; 59025; 72170; 83986; 85025; 85027; 85460; 86850; 86900; 90384; 99211; J2590; J2795; J7120; J7121

== ENCOUNTER → 2024-03-18 14:48 | Outpatient (BNVA) | payer BC, MEDICAID, SELFPAY | PROVIDERS: Visit Provider Nurse Practitioner Family | DX: N39.0 Urinary tract infection, site not specified (principal) | CPT/HCPCS: 81000 ==

== ENCOUNTER 2024-05-08 13:52 | Emergency (ER) | payer BC, MEDICAID, SELFPAY ==
[2024-05-08 13:58] VITALS: BP 107/63; PULSE 85; TEMP 36.7; O2SAT 100; BMI 23.6
[2024-05-08 14:02] VITALS: BP 108/60; RESP 16; O2SAT 97
--- NOTE | 2024-05-08 14:18 | ED_ITS ---
HPI - Female Genitourinary 2 General: Chief complaint: Vaginal Bleeding Stated complaint: 6 wks preg bleeding Time Seen by Provider: 05/08/24 13:57 Source: patient Mode of arrival: ambulatory Limitations: no limitations History of Present Illness: Patient is a 23-year-old female here for vaginal bleeding. She states she believes she is approximately 6 weeks . Vaginal bleeding began today. She has a small amount of cramping that she states is mild. She states bleeding total has soaked approximately 1 pad. States she has not seen OB yet. She does have an appointment scheduled in [place] in mid May. MD elicited complaint: vaginal bleeding and possible miscarriage Onset (ago): hour(s) Severity: mild Quality of pain: cramping Consistency: intermittent Vaginal discharge: none Vaginal bleeding: scant Exacerbating factors: none Relieving factors: none Associated symptoms: Reports no associated symptoms; Deny abdominal pain or vaginal discharge Treatment prior to arrival: none Sexual activity: Yes Patient : Yes Possible : at home test positive Related Data Home Medications Medication Instructions Recorded Confirmed fluoxetine 10 mg capsule (Prozac) 10 mg PO DAILY 03/18/24 05/08/24 vit no.95-ferrous 1 tab PO DAILY 05/08/24 05/08/24 fumarate 28 mg-folic acid 800 mcg tablet () Allergies Allergy/AdvReac Type Severity Reaction Status Date / Time No Known Allergies Allergy Verified 05/08/24 14:02 Review of Systems 2 Const: Denies: fever(s) Card: Denies: chest pain Resp: Denies: dyspnea GI: Denies: abdominal pain, vomiting, diarrhea or change in bowel habits : Reports: vaginal bleeding; Denies: flank pain, dysuria, urinary frequency, urinary urgency, vaginal odor, vaginal discharge or pelvic pain Musc: Denies: back pain Neuro: Denies: dizziness PFSH ED 2 PFSH: Medical History Psychiatric care Family History Grandmother Breast cancer paternal Denies family history of Colon cancer Ovarian cancer Prostate cancer Diabetes Heart disease Hyperlipidemia Hypertension Uterine cancer Thyroid disease Stroke Social History Smoking and tobacco/nicotine status: unknown if used tobacco/nicotine Female Reproductive History: Spontaneous abortions: No Physical Exam 2 Const: COMMON NORMALS: no acute distress, average body habitus, no limitations, healthy appearing, alert and well nourished Resp: COMMON NORMALS: normal respiratory effort and clear to auscultation bilaterally AUSCULTATION: clear to auscultation bilaterally Cardio: COMMON NORMALS: regular rate and regular rhythm RATE: regular rate RHYTHM: regular rhythm GI: COMMON NORMALS: Normal to inspection, nondistended, normoactive bowel sounds present, Soft to palpation, non-tender and no masses PALPATION: Yes Soft to palpation : OTHER: deferred Extremity: GENERAL: Yes normal exam except as noted Neuro: SENSORIUM/ORIENTATION: Yes alert Skin: COMMON NORMALS: no rashes or lesions noted GENERAL SKIN EXAM: no rashes or lesions noted Course 2 Vital Signs: Vital signs: Vital Signs Temperature 98.1 F 05/08/24 13:58 Pulse Rate 85 05/08/24 13:58 Respiratory Rate 16 05/08/24 14:02 Blood Pressure 108/60 05/08/24 14:02 Pulse Oximetry 97 05/08/24 14:02 Oxygen Delivery Me thod Room Air 05/08/24 13:58 MDM - Female Medical Decision Making Bleeding by history is minimal. Vitals stable. H/H normal. Hcg is only 253. Unlikely to get much benefit at this time with US imaging. Will write for outpatient repeat hcg in 48 hours. She was given strict instructions for returning to the ED-otherwise I would like her to follow up with PCP or attempt for sooner appointment through OB. She was given rhogam prior to discharge. Medical Records I reviewed the patient's medical records. Lab Data I reviewed the patient's lab results. 05/08/24 14:22 Laboratory Results WBC 5.80 10^3/uL (3.29-11.43) 05/08/24 14:22 RBC 4.45 10^6/uL (3.85-5.65) 05/08/24 14:22 Hgb 13.30 g/dL (11.27-16.99) 05/08/24 14:22 Hct 40.9 % (36-47) 05/08/24 14:22 MCV 91.9 fl (85-98) 05/08/24 14:22 MCH 29.9 pg (27-33) 05/08/24 14:22 MCHC 32.5 g/dL (30-55) 05/08/24 14:22 RDW 12.1 % (12.1-15.1) 05/08/24 14:22 Plt Count 209 10^3/cmm (157-399) 05/08/24 14:22 MPV 10.1 fL (7.4-10.4) 05/08/24 14:22 Neut % (Auto) 75.2 % 05/08/24 14:22 Lymph % (Auto) 18.4 % 05/08/24 14:22 [place] % (Auto) 4.3 % 05/08/24 14:22 Eos % (Auto) 1.2 % 05/08/24 14:22 Baso % (Auto) 0.7 % 05/08/24 14: Neut # (Auto) 4.36 10^3/uL (1.8-7.7) 05/08/24 14:22 Lymph # (Auto) 1.1 10^3/uL (0.8-4.8) 05/08/24 14:22 [place] # (Auto) 0.3 10^3/uL (0.2-0.9) 05/08/24 14:22 Eos # (Auto) 0.1 10^3/uL (0.0-0.8) 05/08/24 14:22 Baso # (Auto) 0.0 10^3/uL (0.0-0.1) 05/08/24 14:22 Nucleated RBC % (auto) 0 % 05/08/24 14:22 Nucleated RBCs # 0.0 /100WBC 05/08/24 14:22 Ser , Semi-Qnt 253.00 mIU/mL 05/08/24 14:22 No radiology studies performed this visit Discharge Plan Discharge Patient Disposition: Home Clinical Impression: Bleeding in early Condition: Stable Prescriptions: No Action fluoxetine [Prozac] 10 mg capsule 10 mg PO DAILY PNV cmb#95-ferrous fumarate-FA [] 28 mg iron- 800 mcg Tablet 1 tab PO DAILY Discharge Orders: Discharge ED (Routine); Ordered 05/08/24 Ordered By: Lana Fofana Activity Restrictions/Additional Instructions: As we discussed, your hCG today was 253. This most likely is too low to see much on ultrasound imaging. I would like to repeat this in 48 hours-you have been given an outpatient order form for this. You need to return to the emergency department for worsening bleeding or severe pain. Otherwise I would like you to follow-up with your primary care provider in the meantime until you see your OB as scheduled. Coding Level of Care Code ED Cane Stripper for Gennaro Schilling
[2024-05-08 14:30] LABS: Basophils % 0.7 %; Eosinophils # 0.1 10^3/uL (0.0-0.8); Eosinophils % 1.2 %; Hematocrit 40.9 % (36-47); Lymphocytes # 1.1 10^3/uL (0.8-4.8); Lymphocytes % 18.4 %; Mean Corpuscular HGB Conc 32.5 g/dL (30-55); Mean Corpuscular Hemoglobin 29.9 pg (27-33); Mean Corpuscular Volume 91.9 fl (85-98); Mean Platelet Volume 10.1 fL (7.4-10.4); Monocytes # 0.3 10^3/uL (0.2-0.9); Monocytes % 4.3 %; Neutrophils # 4.36 10^3/uL (1.8-7.7); Neutrophils % 75.2 %; Nucleated Red Blood Cells % 0 %; Platelet Count 209 10^3/cmm (157-399); Red Blood Count 4.45 10^6/uL (3.85-5.65); Red Cell Distribution Width 12.1 % (12.1-15.1)
[2024-05-08] MEDS: rho(d) immune globulin 1,500 unit Syringe 1500 UNIT IM (15:10)
[2024-05-08 15:14] VITALS: BP 97/56; PULSE 103; RESP 14; O2SAT 99
[2024-05-08 15:35] VITALS: BP 95/57; PULSE 89; RESP 14; O2SAT 97
== END 2024-05-08 15:37 | disposition home or self-care (01) ==
PROVIDERS: Emergency Medicine; Emergency Provider Physician Assistant
DX: O20.9 Hemorrhage in early pregnancy, unspecified (principal); Z3A.01 Less than 8 weeks gestation of pregnancy
CPT/HCPCS: 36415; 84702; 85025; 86850; 86900; 96372; 99283; J2790

== ENCOUNTER → 2024-09-30 14:52 | Outpatient (BNVA) | payer BC, MEDICAID, SELFPAY | PROVIDERS: Visit Provider Family Medicine | DX: Z34.93 Encounter for supervision of normal pregnancy, unspecified, third trimester (principal); Z3A.34 34 weeks gestation of pregnancy | CPT/HCPCS: 81025 ==